=== PATIENT | female | born 1960 | race Caucasian/White ===

== ENCOUNTER 2018-08-05 13:46 | Emergency (ER) | payer OTHER ==
[2018-08-05 14:16] VITALS: BP 138/90
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
== END 2018-08-05 15:00 | disposition home or self-care (01) ==
LOC: UCEAST 13:46
DX: S29.011A Strain of muscle and tendon of front wall of thorax, initial encounter (principal); S10.91XA Abrasion of unspecified part of neck, initial encounter; S10.93XA Contusion of unspecified part of neck, initial encounter; V43.52XA Car driver injured in collision with other type car in traffic accident, initial encounter; Y93.89 Activity, other specified; Y92.410 Unspecified street and highway as the place of occurrence of the external cause; I10 Essential (primary) hypertension; Z82.49 Family history of ischemic heart disease and other diseases of the circulatory system
CPT/HCPCS: 99212; G0463